=== PATIENT | female | born 1965 | race Caucasian/White ===

== ENCOUNTER 2018-01-25 19:56 | Emergency (ER) | payer SELFPAY ==
[2018-01-25 20:01] VITALS: BP 135/85; PULSE 96; TEMP 98.1; BMI 43.0
--- NOTE | 2018-01-25 20:01 | PDOC ---
Rapid Medical Evaluation Time Seen by Provider: 01/25/18 20:00 Medical Evaluation: 01/25/18 20:00 Pt reports for HIV testing. Denies needle stick. Does not want any other STD testing. Exam: Ambulatory, NAD Orders: HIV test Pt to proceed to ED for further evaluation Discharge Disposition - Diagnosis Encounter for HIV (human immunodeficiency virus) test - Referrals - Patient Instructions - Post Discharge Activity
--- NOTE | 2018-01-25 21:26 | PDOC ---
History of Present Illness - General Chief Complaint: HIV Testing Stated Complaint: HIV TESTING Time Seen by Provider: 01/25/18 20:00 History Source: Patient Exam Limitations: Clinical Condition - History of Present Illness Initial Comments: 01/25/18 21:27 Patient with no symptoms past medical history presenting for HIV testing. Patient denies any exposure to HIV or any exposure to body fluid or blood. Patient denies any other symptoms and declines any other STD tests Past History - Past Medical History Allergies/Adverse Reactions: Allergies Allergy/AdvReac Type Severity Reaction Status Date / Time No Known Allergies Allergy Verified 01/25/18 20:01 Home Medications: Ambulatory Orders NK [No Known Home Medication] 01/25/18 COPD: No HTN: Yes - Suicide/Smoking/Psychosocial Hx Smoking History: Never smoked Review of Systems - Review of Systems Able to Perform ROS?: Yes Is the patient limited [place]ik proficient: No Constitutional: No: Chills, Diaphoresis, Fever, Loss of Appetite, Malaise, Night Sweats, Weakness, Weight Stable, Unintentional Wgt. Loss, Unexplained wgt Loss, Other HEENTM: No: Eye Pain, Blurred Vision, Tearing, Recent change in vision, Double Vision, Cataracts, Ear Pain, Ocular Prothesis, Ear Discharge, Nose Pain, Nose Congestion, Tinnitus, Nose Bleeding, Hearing Loss, Throat Pain, Throat Swelling , Mouth Pain, Dental Problems, Difficulty Swallowing, Mouth Swelling, Other Respiratory: No: Cough, Orthopnea, Shortness of Breath, SOB with Exertion, SOB at Rest, Stridor, Wheezing, Productive cough, Hemoptysis, Other Cardiac (ROS): No: Chest Pain, Edema, Irregular Heart Rate, Lightheadedness, Palpitations, Syncope, Chest Tightness, Other ABD/GI: No: Abdominal Distended, Abd. Pain w/ defecation, Blood Streaked Bowels , Constipated, Diarrhea, Difficulty Swallowing, Nausea, Poor Appetite, Poor Fluid Intake, Rectal Bleeding, Vomiting, Indigestion, Abdominal cramping, Tarry Stools, Other All Other Systems: Reviewed and Negative *Physical Exam - Vital Signs Last Vital Signs Temp Pulse Resp BP Pulse Ox 98.1 F 96 H 18 135/85 100 01/25/18 20:00 01/25/18 20:00 01/25/18 20:00 01/25/18 20:00 01/25/18 20:00 - Physical Exam Comments: 01/25/18 21:28 GENERAL: Well developed, well nourished. Awake and alert. No acute distress. HEENT: Normocephalic, atraumatic. PERRLA, EOMI. No conjunctival pallor. Sclera are non- icteric. Moist mucous membranes. Oropharynx is clear. NECK: Supple. Full ROM. No JVD. Carotid pulses 2+ and symmetric, without bruits. No thyromegaly. No lymphadenopathy. CARDIOVASCULAR: Regular rate and rhythm. No murmurs, rubs, or gallops. Distal pulses are 2+ and symmetric. PULMONARY: No evidence of respiratory distress. Lungs clear to auscultation bilaterally. No wheezing, rales or rhonchi. ABDOMINAL: Soft. Non-tender. Non-distended. No rebound or guarding. No organomegaly. Normoactive bowel sounds. MUSCULOSKELETAL Normal range of motion at all joints. No bony deformities or tenderness. No CVA tenderness. EXTREMITIES: No cyanosis. No clubbing. No edema. No calf tenderness. SKIN: Warm and dry. Normal capillary refill. No rashes. No jaundice. NEUROLOGICAL: Alert, awake, appropriate. Cranial nerves 2-12 intact. No deficits to light touch and temperature in face, upper extremities and lower extremities. No motor deficits in the in face, upper extremities and lower extremities. Normoreflexic in the upper and lower extremities. Normal speech. Toes are down- going bilaterally. Gait is normal without ataxia. PSYCHIATRIC: Cooperative. Good eye contact. Appropriate mood and affect. General Appearance: Yes: Nourished, Appropriately Dressed. No: Apparent Distress Medical Decision Making - Medical Decision Making 01/25/18 21:28 Patient with no sig Past medical history presenting for HIV testing without exposure to anybody fluids or present with HIV. 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 Denies any symptoms. HIV test done was negative and results given to patient *DC/Admit/Observation/Transfer Diagnosis at time of Disposition: Encounter for HIV (human immunodeficiency virus) test - Discharge Dispostion Disposition: HOME Condition at time of disposition: Stable Decision to Admit order: No - Referrals - Patient Instructions - Post Discharge Activity
== END 2018-01-25 21:32 | disposition home or self-care (01) ==
LOC: JERFT 19:56
DX: Z11.4 Encounter for screening for human immunodeficiency virus [HIV] (principal)
CPT/HCPCS: 36415; 87389; 99281-25